=== PATIENT | female | born 1955 | race Hispanic/Latino ===

== ENCOUNTER 2017-10-29 11:38 | Outpatient (CLI) | payer BC ==
--- NOTE | 2017-10-29 12:36 | RAD ---
FOUR VIEWS RIGHT KNEE: Date: 10-29-17 Comparison: None. History: Right knee pain. FINDINGS: There is mild medial compartment narrowing. There is mild osteophyte formation involving the lateral femoral condyle. There is no knee joint effusion, displaced fracture, or evidence of dislocation. The re is patellofemoral joint space narrowing with posterior patellar osteophyte formation. 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 No acute osseous a bnormality. POS: [facility]
== END 2017-10-29 11:39 | disposition home or self-care (01) ==
LOC: NAV RAD 11:38
PROVIDERS: ATTEND Family Medicine
DX: M17.11 Unilateral primary osteoarthritis, right knee (principal)

== ENCOUNTER 2018-04-22 18:46 | Emergency (ER) | payer BC ==
[2018-04-22] MEDS ORDERED: Acetaminophen 500 MG TAB ONE (19:27)
[2018-04-22] MEDS ORDERED: Azithromycin 250 MG TAB ONE (19:27)
[2018-04-22] MEDS ORDERED: Ondansetron ODT 4 MG TAB ONE (19:27)
--- NOTE | 2018-04-22 19:31 | RAD ---
TWO VIEWS CHEST: 04/22/18 HISTORY: Cough. PA and lateral views of the chest is obtained. The lungs are well aerated. No evidence of active intr athoracic disease seen. No evidence of effusions, pneumonia or pneumothorax seen. IMPRESSION: Normal two views chest. POS: [facility]
== END 2018-04-22 19:40 | disposition home or self-care (01) ==
LOC: NAV ERS 18:46
DX: R05 Cough (principal); R51 Headache; I10 Essential (primary) hypertension; R04.2 Hemoptysis; R68.83 Chills (without fever); F41.9 Anxiety disorder, unspecified; F32.9 Major depressive disorder, single episode, unspecified; Z87.891 Personal history of nicotine dependence; Z79.899 Other long term (current) drug therapy
CPT/HCPCS: 71046; 93005; Q0162

== ENCOUNTER 2018-11-06 10:11 | Outpatient (CLI) | payer BC | END 2018-11-06 10:12 | disposition home or self-care (01) | LOC: NAV DTY OP 10:11 | PROVIDERS: ATTEND Internal Medicine Gastroenterology | DX: K59.09 Other constipation (principal); R14.0 Abdominal distension (gaseous); F41.9 Anxiety disorder, unspecified; Z86.010 Personal history of colon polyps | CPT/HCPCS: 97802 ==

== ENCOUNTER 2019-04-15 05:12 | Emergency (ER) | payer BC ==
[2019-04-15 05:59] LABS: #Basophils 0.1 thou/uL (0.0-0.2); #Eosinphils 0.1 thou/uL (0.0-0.7); #Lymphocytes 0.7 thou/uL (1.20-3.40); #Monocytes 0.2 thou/uL (0.11-0.59); #Neutrophils 5.7 thou/uL (1.40-6.50); %Basophils 0.8 % (0.0-1.0); %Eosinophils 1.8 % (0.0-10.0); %Lymphocytes 10.6 % (21.0-51.0); %Monocytes 3.4 % (0.0-10.0); %Neutrophils 83.3 % (42.0-75.0); Hemoglobin 10.4 g/dL (12.0-16.0); Mean Corpuscular HGB CONC 31.2 g/dL (32.0-36.0); Mean Corpuscular Volume 89.9 fL (78.0-98.0); Mean Platelet Volume 5.4 fL (7.4-10.4); Platelet Count 286 thou/uL (130-400); RBC Distribution Width 14.7 % (11.5-14.5); Red Blood Cell (RBC) Count 3.71 mill/uL (4.20-5.40); White Blood Cell (WBC) Count 6.9 thou/uL (4.8-10.8)
[2019-04-15 06:03] LABS: INR-International Normal Ratio 0.9; PTT 25.8 SEC (22.9-36.1); Prothrombin Time 12.5 SEC (12.0-14.7)
[2019-04-15 06:12] LABS: ALT (SGPT) 22 U/L (8-55); AST (SGOT) 24 U/L (5-34); Albumin 3.8 g/dL (3.4-4.8); Alkaline Phosphatase 134 U/L (40-110); Anion Gap 13 mmol/L (10-20); BUN (Urea Nitrogen) 24 mg/dL (9.8-20.1); Bilirubin, Total 0.1 mg/dL (0.2-1.2); Calc. Creatinine Clearance 0 mL/min (70-130); Calcium 8.4 mg/dL (7.8-10.44); Carbon Dioxide 26 mmol/L (23-31); Chloride 105 mmol/L (98-107); Estimated GFR-MDRD 67; Globulin 1.9 g/dL (2.4-3.5); Glucose 117 mg/dL (80-115); Protein, Total 5.7 g/dL (6.0-8.3); Sodium 140 mmol/L (136-145)
--- NOTE | 2019-04-15 08:49 | CT ---
PRELIMINARY REPORT/[facility]/EMERGENCY AFTER HOURS PROCEDURE: PROCEDURE INFORMATION: Exam: CT Cervical Spine Without Contrast Exam date and time: 04/15/2019 6:03 AM Clinical history: 63 years old, female; Injury or trauma; Fall; Initial encounter; Abrasion; Injury d ate: 04/15/2019; Injury details: Fell while jogging TECHNIQUE: Imaging protocol: Computed tomography images of the cervical spine without contrast. Radiation optimization: All CT scans at this facility use at least one of these dose optimization dg hniques: automated exposure control; mA and/or kV adjustment per patient size (includes targeted exam s where dose is matched to clinical indication); or iterative reconstruction. COMPARISON: No relevant prior studies available. FINDINGS: Vertebrae: Vertebral bodies are normal height. No acute fracture is detected. Discs/Spinal canal/Neural foramina: Mild to moderate atlantoaxial degenerative changes. Advanced multilevel facet arthrosis. Multilevel spinal canal narrowing is worst at C5-C6, moderate, predominantly due to posterior endplate osteophytes and disc bulges. Foraminal stenosis is most prono unced in the mid and lower cervical spine, mild to moderate, due to uncovertebral and facet prolifera tion. Prevertebral Space: Prevertebral soft tissues are normal thickness. Soft tissues: Unremarkable. Lungs: Lung apices are clear. Pleural space: No evidence of pneumothorax. IMPRESSION: No acute fracture is detected. Thank you for allowing us to participate in the care of your patient. Dictated and Authenticated by: America Barba MD 04/15/2019 6:52 AM Central Time ([place] & [place]) FINAL REPORT CT CERVICAL SPINE WITHOUT CONTRAST: COMPARISON: 11/13/2015. HISTORY: Status post fall. Trauma. Pain. FINDINGS: No evidence of fracture. There are extensive degenerative changes in the cervical spine with resulta nt central canal stenosis and foraminal narrowing, as described on preliminary report by [facility]. Evalu ation is limited due to technique. IMPRESSION: No fracture. Report is in agreement with the preliminary report by [facility]. POS: [facility]
[2019-04-15] MEDS ORDERED: Iopamidol 370 76% 100 ML VIAL ONE (09:00)
--- NOTE | 2019-04-15 09:06 | CT ---
PRELIMINARY REPORT/[facility]/EMERGENCY AFTER HOURS PROCEDURE: PROCEDURE INFORMATION: Exam: CT Head Without Contrast Exam date and time: 04/15/2019 5:57 AM Clinical history: 63 years old, female; Injury or trauma; Fall; Initial encounter; Concussion / head injury; Consciousness not specified; Injury date: 04/15/2019 TECHNIQUE: Imaging protocol: Computed tomography of the head without contrast. Radiation optimization: All CT scans at this facility use at least one of these dose optimization dg hniques: automated exposure control; mA and/or kV adjustment per patient size (includes targeted exam s where dose is matched to clinical indication); or iterative reconstruction. COMPARISON: No relevant prior studies available. FINDINGS: Brain: No hemorrhage. Unremarkable white matter. No mass effect. Ventricles: No ventriculomegaly. Bones/joints: Unremarkable. No acute fracture. Sinuses: Visualized sinuses are unremarkable. No fluid levels. Nasal septal defect. Mastoid air cells: Visualized mastoid air cells are well aerated. Soft tissues: Right superior parietal scalp swelling. IMPRESSION: No acute intracranial abnormality. Thank you for allowing us to participate in the care of your patient. Dictated and Authenticated by: America Barba MD 04/15/2019 6:37 AM Central Time ([place] & [place]) FINAL REPORT HEAD CT WITHOUT CONTRAST: HISTORY: The patient went for a job this morning, and fell. Posttraumatic pain. COMPARISON: None. FINDINGS: No parenchymal hemorrhage. No extraaxial hematoma. No midline shift. Basilar cisterns are patent. Brain volume is age appropriate. Cortical neal-white matter differentiation is preserved. No hydrocephalus. Calvarium is intact. Adequate aeration of the sinuses and mastoid air cells. IMPRESSION: No intracranial posttraumatic sequelae. This report is in agreement with the preliminary report by [facility]. POS: [facility]
--- NOTE | 2019-04-15 09:12 | CT ---
PRELIMINARY REPORT/[facility]/EMERGENCY AFTER HOURS PROCEDURE: PROCEDURE INFORMATION: Exam: CT Angiography Head With Contrast Exam date and time: 04/15/2019 6:28 AM Clinical history: 63 years old, female; Injury or trauma; Fall; Initial encounter; Blunt trauma; Head TECHNIQUE: Imaging protocol: Computed tomography angiography of the head with intravenous contrast. 3D rendering : MIP reconstructed images were created and reviewed. COMPARISON: [facility]A Angio Neck W WO Con 04/15/2019 5:57 AM FINDINGS: Right internal carotid artery: No significant stenosis or occlusion. Right anterior cerebral artery: No significant stenosis or occlusion. Right middle cerebral artery: No significant stenosis or occlusion. Right posterior cerebral artery: No significant stenosis or occlusion. Right vertebral artery: No significant stenosis or occlusion. Left internal carotid artery: No significant stenosis or occlusion. Left anterior cerebral artery: No significant stenosis or occlusion. Left middle cerebral artery: No significant stenosis or occlusion. Left posterior cerebral artery: No significant stenosis or occlusion. Left vertebral artery: No significant stenosis or occlusion. Basilar artery: No occlusion or significant stenosis. IMPRESSION: No acute findings. PROCEDURE INFORMATION: Exam: CT Angiography Neck With Contrast Exam date and time: 04/15/2019 6:28 AM Clinical history: 63 years old, female; Injury or trauma; Fall; Initial encounter; Blunt trauma; Head TECHNIQUE: Imaging protocol: Computed tomography angiography of the neck with intravenous contrast. 3D rendering: MIP reconstructed images were created and reviewed. Contrast material: ISOVUE 370; Contrast volume: 100 ml; Contrast route: IV; COMPARISON: CTA Angio Neck W WO Con 04/15/2019 5:57 AM FINDINGS: Exam is degraded by motion artifact and streak artifact from dental amalgam. VASCULATURE: Suboptimal contrast enhancement due to early contrast phase Right common carotid artery: No significant stenosis or occlusion. Right internal carotid artery: No significant stenosis or occlusion. Right external carotid artery: No significant stenosis or occlusion. Right vertebral artery: No significant stenosis or occlusion. Left common carotid artery: No significant stenosis or occlusion. Left internal carotid artery: No significant stenosis or occlusion. Left external carotid artery: No significant stenosis or occlusion. Left vertebral artery: No significant stenosis or occlusion. NECK: Bones/joints: No acute fracture. Soft tissues: No significant soft tissue swelling. IMPRESSION: Exam is degraded by motion artifact and streak artifact from dental amalgam. Suboptimal contrast enhancement due to early contrast phase. No acute findings. COMMENT: Reference per NASCET criteria for degree of stenosis: Mild: less than 50% stenosis. Moderate: 50-69% stenosis. Severe: 70-94% stenosis. Near occlusion: 95-99% stenosis. Thank you for allowing us to participate in the care of your patient. Dictated and Authenticated by: America Barba MD 04/15/2019 6:58 AM Central Time ([place] & [place]) FINAL REPORT CT ANGIOGRAM OF THE HEAD CT ANGIOGRAM OF THE NECK: HISTORY: The patient fell and rolled down a hill. Evaluate for vascular occlusion/stenosis. TECHNIQUE: CT angiogram of the head and neck are performed in the axial plane. Three-dimensional reformatted im ages are submitted for interpretation. FINDINGS: This report is in agreement with the preliminary report by [facility]. No significant occlusion with regard s to the [place] of [place]. The cervical, carotid, and vertebral arteries have appropriate enhancemen t and luminal diameter. No significant stenosis based upon NASCET criteria. IMPRESSION: Limited evaluation of the cervical and intracranial arterial systems due to poor timing of contrast b olus. There does not appear to be acute occlusion or significant narrowing. This report is in agree ment with the preliminary report by [facility]. POS: [facility]
== END 2019-04-15 07:15 | disposition short-term general hospital (02) ==
LOC: NAV ERS 05:12
DX: R53.1 Weakness (principal); R47.81 Slurred speech; R41.82 Altered mental status, unspecified; M19.90 Unspecified osteoarthritis, unspecified site; F41.9 Anxiety disorder, unspecified; F32.9 Major depressive disorder, single episode, unspecified; Z87.891 Personal history of nicotine dependence; Z79.899 Other long term (current) drug therapy
CPT/HCPCS: 0042T; 36416; 70450; 70496; 70498; 72125; 80053; 80307; 82274; 83630; 84484; 85025; 85610; 85730; 87045; 87046; 87427; 87449; 93005; Q9967

== ENCOUNTER 2019-06-02 13:54 | Emergency (ER) | payer BC ==
--- NOTE | 2019-06-02 15:13 | RAD ---
RIGHT FOOT THREE VIEWS: HISTORY: Patient dropped a weight on foot. FINDINGS: There is a slightly comminuted but mainly obliquely oriented minimally displaced fracture of the prox imal phalanx of the great toe. IMPRESSION: Proximal phalanx great toe fracture. POS: [facility]
== END 2019-06-02 15:18 | disposition home or self-care (01) ==
LOC: NAV ERS 13:54
DX: S92.411A Displaced fracture of proximal phalanx of right great toe, initial encounter for closed fracture (principal); M19.90 Unspecified osteoarthritis, unspecified site; F41.9 Anxiety disorder, unspecified; F32.9 Major depressive disorder, single episode, unspecified; Z87.891 Personal history of nicotine dependence; Z79.891 Long term (current) use of opiate analgesic; W20.8XXA Other cause of strike by thrown, projected or falling object, initial encounter

== ENCOUNTER 2019-08-14 03:51 | Emergency (ER) | payer BC ==
[2019-08-14 04:34] LABS: #Eosinphils 0.3 thou/uL (0.0-0.7); #Lymphocytes 1.4 thou/uL (1.20-3.40); #Monocytes 0.5 thou/uL (0.11-0.59); #Neutrophils 1.7 thou/uL (1.40-6.50); %Basophils 1.3 % (0.0-1.0); %Eosinophils 6.8 % (0.0-10.0); %Lymphocytes 35.5 % (21.0-51.0); %Monocytes 11.7 % (0.0-10.0); %Neutrophils 44.7 % (42.0-75.0); Hemoglobin 10.8 g/dL (12.0-16.0); Mean Corpuscular HGB CONC 32.3 g/dL (32.0-36.0); Mean Corpuscular Hemoglobin 27.9 pg (27.0-31.0); Mean Corpuscular Volume 86.4 fL (78.0-98.0); Mean Platelet Volume 5.5 fL (7.4-10.4); Platelet Count 377 thou/uL (130-400); RBC Distribution Width 14.6 % (11.5-14.5); Red Blood Cell (RBC) Count 3.87 mill/uL (4.20-5.40); White Blood Cell (WBC) Count 3.8 thou/uL (4.8-10.8)
[2019-08-14 04:48] LABS: ALT (SGPT) 17 U/L (8-55); AST (SGOT) 15 U/L (5-34); Albumin 4.1 g/dL (3.4-4.8); Alkaline Phosphatase 154 U/L (40-110); Anion Gap 14 mmol/L (10-20); BUN (Urea Nitrogen) 10 mg/dL (9.8-20.1); Bilirubin, Total 0.1 mg/dL (0.2-1.2); Calc. Creatinine Clearance 0 mL/min (70-130); Calcium 8.8 mg/dL (7.8-10.44); Carbon Dioxide 22 mmol/L (23-31); Chloride 111 mmol/L (98-107); Estimated GFR-MDRD 75; Globulin 2.3 g/dL (2.4-3.5); Glucose 112 mg/dL (80-115); Potassium 3.4 mmol/L (3.5-5.1); Protein, Total 6.4 g/dL (6.0-8.3); Sodium 144 mmol/L (136-145)
== END 2019-08-14 05:00 | disposition home or self-care (01) ==
LOC: NAV ERS 03:51
DX: R11.2 Nausea with vomiting, unspecified (principal); E78.00 Pure hypercholesterolemia, unspecified; E78.5 Hyperlipidemia, unspecified; F41.9 Anxiety disorder, unspecified; F32.9 Major depressive disorder, single episode, unspecified; M19.90 Unspecified osteoarthritis, unspecified site; Z87.891 Personal history of nicotine dependence; Z79.899 Other long term (current) drug therapy
CPT/HCPCS: 80053; 85025; 99284